=== PATIENT | male | born 1995 | race Caucasian/White ===

== ENCOUNTER 2018-12-06 08:52 | Emergency (ER) | payer BC ==
[2018-12-06 09:18] VITALS: BP 136/71; PULSE 90; TEMP 97.9; BMI 25.0
--- NOTE | 2018-12-06 09:24 | PDOC ---
History of Present Illness - General Chief Complaint: Injury Stated Complaint: Injury Time Seen by Provider: 12/06/18 09:24 History Source: Patient Exam Limitations: No Limitations - History of Present Illness Initial Comments: 12/06/18 09:37 Fell onto another persons outstretched arm this morning early landing on posterior aspect of left mid back/chest wall. Has exquisite pain midpoint thorax equipment scapulary line. No respiratory distress but is painful to take deep inspiration. Occurred: reports: this morning Severity: reports: moderate, severe Pain Location: reports: chest Method of Injury: Yes: fall Modifying Factors: improves with: None Loss of Consciousness: no loss of consciousness Associated Symptoms (Fall): chest pain Past History - Travel Traveled outside of the country in the last 30 days: No Close contact w/someone who was outside of country & ill: No - Past Medical History Allergies/Adverse Reactions: Allergies Allergy/AdvReac Type Severity Reaction Status Date / Time No Known Allergies Allergy Verified 12/06/18 08:58 Home Medications: Ambulatory Orders Oxycodone HCl/Acetaminophen [Percocet 5-325 mg Tablet -] 1 - 2 tab PO Q4H PRN # 10 tablet MDD 4 12/06/18 COPD: No - Immunization History Immunization Up to Date: Yes - Suicide/Smoking/Psychosocial Hx Smoking History: Current every day smoker Number of Cigarettes Smoked Daily: 3 Information on smoking cessation initiated: No Hx Alcohol Use: No Drug/Substance Use Hx: Yes (MARIJUANA) Review of Systems - Review of Systems Able to Perform ROS?: Yes Is the patient limited Croatian proficient: Yes Constitutional: Yes: Symptoms Reported, See HPI, Malaise HEENTM: No: Symptoms Reported Respiratory: Yes: Symptoms reported, See HPI, Other (pain with deep ). No: Cough Musculoskeletal: Yes: Symptoms Reported, See HPI, Back Pain Neurological: Yes: Symptoms reported, See HPI All Other Systems: Reviewed and Negative *Physical Exam - Vital Signs Last Vital Signs Temp Pulse Resp BP Pulse Ox 97.9 F 90 16 136/71 98 12/06/18 08:58 12/06/18 08:58 12/06/18 08:58 12/06/18 08:58 12/06/18 08:58 - Physical Exam General Appearance: Yes: Nourished, Appropriately Dressed, Apparent Distress, Moderate Distress HEENT: positive: ELIZABETH, Normal ENT Inspection, TMs Normal, Pharynx Normal Neck: positive: Supple. negative: Tender Respiratory/Chest: positive: Chest Tender, Lungs Clear, Normal Breath Sounds, Other (tender to posterior MSL ribs with swelling / at ~ 7,8,9) Cardiovascular: positive: Regular Rhythm Gastrointestinal/Abdominal: positive: Soft, Guarding. 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 Encouraged not to smoke and given incentive spirometer to help encourage airway and respiratory effort. Given #10 Percocet tablets for pain relief and encouraged to follow up in 2 days for reevaluation. Understands need to rest and expected length of time. Understands to return to emergency department for difficulty breathing, fevers, or any other issues. *DC/Admit/Observation/Transfer Diagnosis at time of Disposition: Ribs, multiple fractures Qualifiers: Encounter type: initial encounter Fracture type: closed Laterality: left Qualified Code(s): S22.42XA - Multiple fractures of ribs, left side, initial encounter for closed fracture - Discharge Dispostion Disposition: HOME Condition at time of disposition: Stable Decision to Admit order: No - Prescriptions Prescriptions: Oxycodone HCl/Acetaminophen [Percocet 5-325 mg Tablet -] 1 - 2 tab PO Q4H PRN # 10 tablet MDD 4 PRN Reason: Pain - Referrals Referrals: ON STAFF,NOT [Primary Care Provider] - - Patient Instructions Printed Discharge Instructions: DI for Rib Fracture Additional Instructions: Rest, no sports or exercise until cleared by DrElizabeth drink lots of fluids: Teas, water, soups, Pedialyte Use pillow to splint with deep inspiration and cough Use incentive spirometer as directed 10 times an hour for the next week to help keep airways and lungs open Continue [id number] medications for symptomatic relief May use one tablet of Percocet every 6 hours for severe pain Tylenol or Motrin for fever and pain Followup with private physician in one to 2 days for reevaluation Return to emergency department for worsened symptoms, fevers, dehydration or worsening pain, difficulty breathing - Post Discharge Activity Forms/Work/School Notes: Back to Work
[2018-12-06] MEDS ORDERED: IBUPROFEN 600 MG TABLET (FP) PO ONE ×2 (09:37→09:39)
== END 2018-12-06 10:47 | disposition home or self-care (01) ==
LOC: JERFT 08:52
DX: S22.42XA Multiple fractures of ribs, left side, initial encounter for closed fracture (principal); W01.198A Fall on same level from slipping, tripping and stumbling with subsequent striking against other object, initial encounter; Y93.89 Activity, other specified; Y92.89 Other specified places as the place of occurrence of the external cause; Y99.8 Other external cause status
CPT/HCPCS: 71101-TC-LT-FY; 99281-25